=== PATIENT | female | born 1960 | race African-American/Black ===

== ENCOUNTER 2016-11-04 18:25 | Inpatient (IN) | payer MEDICAID ==
[~2016-11-04] VITALS: Ht 170.2 cm; Wt 71.2 kg
[2016-11-04 18:25] VITALS: BP 106/70; PULSE 72; RESP 20; TEMP 96.9; O2SAT 100
[2016-11-04 19:32] LABS: BASOPHILS % (AUTO) 0.1 % (0.0-2.0); HEMATOCRIT 25.6 % (36-48); LYMPHOCYTES # (AUTO) 1.4 K/uL (1.0-5.5); LYMPHOCYTES % (AUTO) 9.2 % (20.5-51.5); MEAN CORPUSCULAR HEMOGLOBIN 28 pg (27-31); MEAN CORPUSCULAR HGB CONC 31 % (32-36); MEAN CORPUSCULAR VOLUME 90 fL (79.0-98.0); MONOCYTES # (AUTO) 1.4 K/uL (0.0-1.0); NEUTROPHILS # (AUTO) 12.8 K/uL (1.8-7.7); NEUTROPHILS % (AUTO) 81.7 % (40.0-70.0); PLATELET COUNT (AUTO) 178 K/uL (130-430); RED BLOOD CELL COUNT(AUTO) 2.83 MIL/uL (4.2-6.2); WHITE BLOOD COUNT (AUTO) 15.6 K/uL (4.8-10.8)
[2016-11-04 19:35] LABS: CALCIUM 9.2 mg/dL (8.4-11.0); CREATININE 1.26 mg/dL (0.55-1.30); POTASSIUM 3.6 mmol/L (3.5-5.1)
[2016-11-04 19:39] LABS: INR 1.4 (0.8-1.2); PROTHROMBIN TIME 15.3 SECS (9.5-12.5)
[2016-11-04] MEDS ORDERED: NACL 0.9% 1,000 ML IV ONE (19:45)
[2016-11-04] MEDS ORDERED: cefTRIAXone 1 GM IVPB PREMIX 50 ML IV ONE (19:45)
[2016-11-04 19:51] LABS: TOTAL BILIRUBIN 1.3 mg/dL (0.0-1.0); TOTAL PROTEIN, SERUM 7.4 g/dL (6.4-8.3)
[2016-11-04 23:36] LABS: BILIRUBIN,URINE 1+ (NEGATIVE); BLOOD, URINE 3+ (NEGATIVE); CLARITY/URINE HAZY (CLEAR); COLOR,URINE BROWN (YELLOW); GLUCOSE,URINE NEGATIVE (NEGATIVE); KETONES,URINE NEGATIVE (NEGATIVE); LEUKOCYTE ESTERASE ,URINE 3+ (NEGATIVE); NITRITE, URINE POSITIVE (NEGATIVE); PROTEIN URINE 2+ (NEGATIVE); UROBILINOGEN,URINE 0.2 (0.2-1.0)
[2016-11-04] MEDS ORDERED: ACETAMINOPHEN 325 MG TABLET PO PRN (23:45)
[2016-11-04] MEDS ORDERED: DOCUSATE SODIUM 100 MG CAPSULE PO PRN (23:45)
[2016-11-04] MEDS ORDERED: LORazepam 2 MG/ML VIAL IVP PRN (23:45)
[2016-11-04] MEDS ORDERED: ZOLPIDEM TARTRATE 5 MG TABLET PO PRN (23:45)
[2016-11-04] MEDS ORDERED: POTASSIUM CHLORIDE 10 MEQ TAB.PRT.SR PO PRN (23:45)
[2016-11-04] MEDS ORDERED: MORPHINE 2 MG/ML INJ. SYRINGE IVP PRN (23:45)
[2016-11-04] MEDS ORDERED: MAGNESIUM SULFATE 50 ML IV PRN (23:45)
[2016-11-04] MEDS ORDERED: ONDANSETRON HCL 4 MG/2 ML VIAL IVP PRN (23:45)
[2016-11-04] MEDS ORDERED: ATOR40TA68 PO (23:47)
[2016-11-04] MEDS ORDERED: INSU100V9 SUBCUT (23:47)
[2016-11-04 23:50] VITALS: BP 124/72; PULSE 74; RESP 17; TEMP 98.7; O2SAT 96
[2016-11-04] MEDS ORDERED: ACET325T53 PO (23:55)
[2016-11-04] MEDS ORDERED: ONDA4TAB5 PO (23:55)
[2016-11-04 23:59] LABS: BACTERIA,URINE MODERATE /HPF (None Seen); WBC,URINE >100 /HPF (0-3)
[2016-11-05 00:15] VITALS: BP 106/75; PULSE 74; RESP 17; TEMP 96.9; O2SAT 94
[2016-11-05 01:41] LABS: IRON (SERUM) 31 mcg/dL (37-145); TOTAL IRON BIND. CAPACITY 171 ug/dL (250-450)
[2016-11-05 01:50] VITALS: BP 107/75; PULSE 74; RESP 17; TEMP 96; O2SAT 94
[2016-11-05] MEDS ORDERED: LANS15CA5 PO (03:39)
[2016-11-05] MEDS ORDERED: DEXT30DR6 EACH EYE (03:39)
[2016-11-05] MEDS ORDERED: MIDO5TAB20 PO (03:39)
[2016-11-05] MEDS ORDERED: [UNRECOGNIZED DRUG - CODE] GT (03:46)
[2016-11-05] MEDS ORDERED: EPOE40003 SUBCUT (03:46)
[2016-11-05] MEDS ORDERED: ATOR40TA68 PO (03:46)
[2016-11-05] MEDS ORDERED: ATOR20TA64 PO (03:46)
[2016-11-05 04:00] VITALS: BP 156/97; PULSE 105; RESP 18; TEMP 98.6; O2SAT 95
[2016-11-05 06:54] LABS: BASOPHILS % (AUTO) 0.1 % (0.0-2.0); HEMATOCRIT 22.9 % (36-48); HEMOGLOBIN 7.3 g/dL (12.0-16.0); LYMPHOCYTES % (AUTO) 7.9 % (20.5-51.5); MEAN CORPUSCULAR HEMOGLOBIN 29 pg (27-31); MEAN CORPUSCULAR HGB CONC 32 % (32-36); MEAN CORPUSCULAR VOLUME 90 fL (79.0-98.0); MONOCYTES # (AUTO) 1.1 K/uL (0.0-1.0); MONOCYTES % (AUTO) 8.2 % (1.7-9.3); NEUTROPHILS % (AUTO) 83.8 % (40.0-70.0); PLATELET COUNT (AUTO) 166 K/uL (130-430); RED BLOOD CELL COUNT(AUTO) 2.55 MIL/uL (4.2-6.2); RED CELL DISTRIBUTION WIDTH 18.6 % (9.0-15.0); WHITE BLOOD COUNT (AUTO) 13.1 K/uL (4.8-10.8)
[2016-11-05 07:25] LABS: CALCIUM 8.7 mg/dL (8.4-11.0); CREATININE 1.42 mg/dL (0.55-1.30); POTASSIUM 3.4 mmol/L (3.5-5.1)
[2016-11-05] MEDS: HEPARIN SODIUM,PORCINE 5000 UNITS/ML VIAL SUBCUT SCH ×2 (10:00→21:50)
[2016-11-05] MEDS ORDERED: DEXTROSE 50% JECT 50 ML DISP.SYRIN IVP PRN (10:45)
[2016-11-05 12:00] VITALS: BP 97/65; PULSE 80; RESP 16; TEMP 96.9; O2SAT 100
[2016-11-05 14:08] VITALS: Ht 170.2 cm; Wt 71.2 kg
[2016-11-05 16:00] VITALS: BP 103/62; PULSE 76; RESP 18; TEMP 95.8; O2SAT 100
[2016-11-05] MEDS: cefTRIAXone 1 GM in D5W 50 ML IV SCH (16:09)
[2016-11-05] MEDS: INSULIN ASPART 100 UNITS/ML, 10 ML VIAL (NovoLOG) SUBCUT PRN ×2 (18:28→22:14)
[2016-11-05 19:44] VITALS: BP 105/66; PULSE 80; RESP 16; TEMP 96.2; O2SAT 95
[2016-11-06] VITALS (8 sets, daily range): BP systolic 109–135; BP diastolic 75–85; PULSE 80–97; RESP 16–19; TEMP 97–98; O2SAT 96–100
[2016-11-06] MEDS: INSULIN ASPART 100 UNITS/ML, 10 ML VIAL (NovoLOG) SUBCUT PRN ×2 (06:34→16:57)
[2016-11-06 08:07] LABS: BASOPHILS % (AUTO) 0.1 % (0.0-2.0); HEMATOCRIT 31.9 % (36-48); HEMOGLOBIN 10.6 g/dL (12.0-16.0); LYMPHOCYTES # (AUTO) 0.9 K/uL (1.0-5.5); LYMPHOCYTES % (AUTO) 6.4 % (20.5-51.5); MEAN CORPUSCULAR HEMOGLOBIN 28 pg (27-31); MEAN CORPUSCULAR HGB CONC 33 % (32-36); MONOCYTES % (AUTO) 7.3 % (1.7-9.3); NEUTROPHILS # (AUTO) 11.7 K/uL (1.8-7.7); NEUTROPHILS % (AUTO) 86.2 % (40.0-70.0); PLATELET COUNT (AUTO) 172 K/uL (130-430); RED BLOOD CELL COUNT(AUTO) 3.72 MIL/uL (4.2-6.2); RED CELL DISTRIBUTION WIDTH 18.5 % (9.0-15.0); WHITE BLOOD COUNT (AUTO) 13.6 K/uL (4.8-10.8)
[2016-11-06 08:21] LABS: MEAN CORPUSCULAR VOLUME 86 fL (79.0-98.0)
[2016-11-06 08:22] LABS: INR 1.3 (0.8-1.2); PROTHROMBIN TIME 13.7 SECS (9.5-12.5)
[2016-11-06 08:24] LABS: CALCIUM 9.1 mg/dL (8.4-11.0); CREATININE 1.67 mg/dL (0.55-1.30); POTASSIUM 4.2 mmol/L (3.5-5.1)
[2016-11-06] MEDS: BALSAM PERU/CASTOR OIL 60 GM OINT...G. TP SCH (09:00)
[2016-11-06] MEDS: HEPARIN SODIUM,PORCINE 5000 UNITS/ML VIAL SUBCUT SCH ×2 (09:00→21:02)
[2016-11-06] MEDS: ATORVASTATIN 20 MG TABLET PO SCH (09:16)
[2016-11-06] MEDS: cefTRIAXone 1 GM in D5W 50 ML IV SCH (09:17)
[2016-11-07] VITALS: BP 109/64; PULSE 85; RESP 16; TEMP 98.6; O2SAT 95
[2016-11-07 04:00] VITALS: BP 116/67; PULSE 80; RESP 17; TEMP 98.2; O2SAT 96
[2016-11-07] MEDS: INSULIN ASPART 100 UNITS/ML, 10 ML VIAL (NovoLOG) SUBCUT PRN (06:44)
[2016-11-07 06:53] LABS: BASOPHILS % (AUTO) 0.2 % (0.0-2.0); EOSINOPHILS % (AUTO) 0.1 % (0.0-4.0); HEMATOCRIT 31.4 % (36-48); HEMOGLOBIN 10.3 g/dL (12.0-16.0); LYMPHOCYTES # (AUTO) 1.2 K/uL (1.0-5.5); LYMPHOCYTES % (AUTO) 8.8 % (20.5-51.5); MEAN CORPUSCULAR HEMOGLOBIN 28 pg (27-31); MEAN CORPUSCULAR HGB CONC 33 % (32-36); MEAN CORPUSCULAR VOLUME 86 fL (79.0-98.0); MONOCYTES % (AUTO) 7.9 % (1.7-9.3); NEUTROPHILS # (AUTO) 10.9 K/uL (1.8-7.7); PLATELET COUNT (AUTO) 184 K/uL (130-430); RED BLOOD CELL COUNT(AUTO) 3.63 MIL/uL (4.2-6.2); RED CELL DISTRIBUTION WIDTH 18.8 % (9.0-15.0); WHITE BLOOD COUNT (AUTO) 13.1 K/uL (4.8-10.8)
[2016-11-07 06:57] LABS: ALBUMIN 1.7 g/dL (3.4-4.8); CALCIUM 8.8 mg/dL (8.4-11.0); CREATININE 1.86 mg/dL (0.55-1.30); PHOSPHORUS 1.8 mg/dL (2.7-4.5); POTASSIUM 3.8 mmol/L (3.5-5.1); TOTAL PROTEIN, SERUM 6.7 g/dL (6.4-8.3)
[2016-11-07 07:57] VITALS: BP 100/61; PULSE 90; RESP 18; TEMP 97; O2SAT 100
[2016-11-07] MEDS: ATORVASTATIN 20 MG TABLET PO SCH ×2 (09:00→11:13)
[2016-11-07] MEDS: HEPARIN SODIUM,PORCINE 5000 UNITS/ML VIAL SUBCUT SCH ×3 (09:00→21:48)
[2016-11-07] MEDS: BALSAM PERU/CASTOR OIL 60 GM OINT...G. TP SCH ×2 (09:00→11:11)
[2016-11-07] MEDS: cefTRIAXone 1 GM in D5W 50 ML IV SCH ×2 (11:12→11:29)
[2016-11-07 12:03] VITALS: BP 129/81; PULSE 88; RESP 18; TEMP 98.9; O2SAT 100
[2016-11-07] MEDS ORDERED: HEPARIN IV FLUSH 300 UNITS/3ML SYR INJ ONE (15:15)
[2016-11-07 16:10] VITALS: BP 114/70; PULSE 88; RESP 18; TEMP 98.1; O2SAT 100
[2016-11-07] MEDS ORDERED: HEPARIN SODIUM, PORCINE 10,000 UNITS/ 10 ML VIAL MC ONE (16:15)
[2016-11-07 19:35] VITALS: BP 103/62; PULSE 88; PULSE 96; RESP 20; TEMP 98.3; O2SAT 97
[2016-11-08 00:03] VITALS: BP 126/77; PULSE 91; RESP 16; TEMP 98.2; O2SAT 100
[2016-11-08 04:37] VITALS: BP 119/85; PULSE 93; RESP 16; TEMP 98.8; O2SAT 100
[2016-11-08 06:06] LABS: FOLATE (FOLIC ACID) 15.8 ng/mL (>3.0)
[2016-11-08 06:37] LABS: CALCIUM 8.7 mg/dL (8.4-11.0); CREATININE 1.5 mg/dL (0.55-1.30); POTASSIUM 4.2 mmol/L (3.5-5.1)
[2016-11-08] MEDS: INSULIN ASPART 100 UNITS/ML, 10 ML VIAL (NovoLOG) SUBCUT PRN (06:41)
[2016-11-08 06:50] LABS: HEMATOCRIT 29.4 % (36-48); HEMOGLOBIN 9.8 g/dL (12.0-16.0); MEAN CORPUSCULAR HEMOGLOBIN 29 pg (27-31); MEAN CORPUSCULAR HGB CONC 33 % (32-36); MEAN CORPUSCULAR VOLUME 86 fL (79.0-98.0); PLATELET COUNT (AUTO) 165 K/uL (130-430); RED BLOOD CELL COUNT(AUTO) 3.43 MIL/uL (4.2-6.2); RED CELL DISTRIBUTION WIDTH 17.9 % (9.0-15.0); WHITE BLOOD COUNT (AUTO) 12.4 K/uL (4.8-10.8)
[2016-11-08 07:39] LABS: ATYPICAL LYMPHOCYTES % 0 % (0-0); BAND % (MANUAL) 0 % (0-6); BASOPHILS % (MANUAL) 0 % (0-2); EOSINOPHILS % (MANUAL) 0 % (0-7); LYMPHOCYTES % (MANUAL) 9 % (20-46); MONOCYTES % (MANUAL) 10 % (0-11)
[2016-11-08 08:00] VITALS: BP 120/75; PULSE 88; RESP 16; TEMP 98.2; O2SAT 99
[2016-11-08] MEDS ORDERED: FLUCONAZOLE 100 mg/ NS 50 ML IV SCH (08:30)
[2016-11-08] MEDS: ATORVASTATIN 20 MG TABLET PO SCH (09:51)
[2016-11-08] MEDS: HEPARIN SODIUM,PORCINE 5000 UNITS/ML VIAL SUBCUT SCH (09:52)
[2016-11-08] MEDS: BALSAM PERU/CASTOR OIL 60 GM OINT...G. TP SCH (09:52)
[2016-11-08 10:09] LABS: HEPATITIS A AB, IgM Negative (Negative); HEPATITIS B CORE AB, IgM Positive (Negative); HEPATITIS B SURFACE AG Negative (Negative)
[2016-11-08] MEDS: cefTRIAXone 1 GM in D5W 50 ML IV SCH (11:05)
[2016-11-08 11:29] VITALS: BP 114/74; PULSE 95; RESP 19; TEMP 97; O2SAT 100
[2016-11-08 13:48] VITALS: BP 114/77; PULSE 95; RESP 19; TEMP 97; O2SAT 100
== END 2016-11-08 16:40 | DRG 720 ==
LOC: SED 18:25 → STU 22:49 → SMU 23:14
PROVIDERS: ADMIT General Practice; ATTEND General Practice
PROC: 30233N1 Transfusion of Nonautologous Red Blood Cells into Peripheral Vein, Percutaneous Approach (ICD-10-PCS; principal; 2016-11-05)
PROC: 02HV33Z Insertion of Infusion Device into Superior Vena Cava, Percutaneous Approach (ICD-10-PCS; 2016-11-06)
PROC: B548ZZA Ultrasonography of Superior Vena Cava, Guidance (ICD-10-PCS; 2016-11-06)
PROC: 5A1D00Z (ICD-10-PCS; 2016-11-07)
DX: A41.9 Sepsis, unspecified organism (principal); N17.0 Acute kidney failure with tubular necrosis; L89.154 Pressure ulcer of sacral region, stage 4; N18.6 End stage renal disease; R18.8 Other ascites; E11.22 Type 2 diabetes mellitus with diabetic chronic kidney disease; E44.0 Moderate protein-calorie malnutrition; L89.614 Pressure ulcer of right heel, stage 4; I48.2 Chronic atrial fibrillation; N39.0 Urinary tract infection, site not specified; K74.60 Unspecified cirrhosis of liver; E11.65 Type 2 diabetes mellitus with hyperglycemia; J44.9 Chronic obstructive pulmonary disease, unspecified; R13.10 Dysphagia, unspecified; D63.8 Anemia in other chronic diseases classified elsewhere; I25.5 Ischemic cardiomyopathy; I69.354 Hemiplegia and hemiparesis following cerebral infarction affecting left non-dominant side; Z74.01 Bed confinement status; Z99.2 Dependence on renal dialysis; Z93.1 Gastrostomy status; Z68.24 Body mass index [BMI] 24.0-24.9, adult
CPT/HCPCS: 36415; 71010; 80048; 80053; 80074; 81000-TC; 82272; 82607; 82728; 82746; 82962; 83540-TC; 83550-TC; 83605; 83735-TC; 84100-TC; 85007; 85025; 85027; 85044-TC; 85610-TC; 85730-TC; 86886; 86900; 86901; 86920; 87040-TC; 87081; 87086; 87230-TC; 90935; 96365; 99285; C1751; C1769; J0696; J1450; J1644; J1815; J7030; J7050; J7060; P9021